=== PATIENT | female | born 1960 | race Caucasian/White ===

== ENCOUNTER 2024-12-16 12:04 | Emergency (ER) | payer BC, SELFPAY ==
[2024-12-16 12:09] VITALS: BP 125/56; PULSE 70; RESP 20; TEMP 37; O2SAT 100; BMI 27.1
--- NOTE | 2024-12-16 12:14 | DI.RAD.S_ITS ---
PROCEDURE: XR ANKLE LT MIN 3V INDICATIONS: glf TECHNIQUE: 3 views of the ankle were acquired. COMPARISON: None. FINDINGS: Bones: Question small avulsion fragment off the lateral dorsal talus, not definite. Ankle mortise is normally aligned. No suspicious bony lesions. Soft tissues: No tibiotalar joint effusion. Achilles tendon appears normal. IMPRESSION: Question small avulsion off of the talus. Dictated by: Nhan House M.D. on 12/16/2024 at 13:18 Approved by: Nhan House M.D. on 12/16/2024 at 13:19
--- NOTE | 2024-12-16 14:38 | ED.LOWEXIN ---
HPI - Extremity Injury (Lower) <Susana De La Cruz PA-C - Last Filed: 12/16/24 15:40> General Chief Complaint: Extremity Injury, Lower Stated Complaint: sprained left ankle Time Seen by Provider: 12/16/24 14:38 Source: patient Mode of arrival: Ambulatory History of Present Illness HPI Narrative: 64-year-old female resident of [facility] presents today with left foot pain and swelling. She was walking when she stepped in a hole describing a hyper plantar flexion type injury possibly inverting her ankle and now having pain with weightbear. She denied feeling or hearing a popping sensation, she did not go to ground. She has no prior orthopedic injuries to this region. She is denying any numbness or tingling or loss of sensation. Ice was applied upon arrival here. She states she is relatively comfortable until she tries to move her foot or ankle. She did take Tylenol 650 mg prior to arrival. All other systems reviewed and are negative. Related Data Allergies Allergy/AdvReac Type Severity Reaction Status Date / Time levofloxacin Allergy Intermediate Verified 12/16/24 12:10 enoxaparin (From Lovenox) Allergy Mild Verified 12/16/24 12:10 Review of Systems <Susana De La Cruz PA-C - Last Filed: 12/16/24 15:40> Review of Systems Narrative: All other systems reviewed and are negative. Patient History <Susana De La Cruz PA-C - Last Filed: 12/16/24 15:40> Social History Smoking Status: Never smoker Smoking Status: Never smoker Exam <Susana De La Cruz PA-C - Last Filed: 12/16/24 15:40> Initial Vital Signs Initial Vital Signs: Vital Signs Temperature 98.6 F 12/16/24 12:09 Pulse Rate 70 12/16/24 12:09 Respiratory Rate 20 12/16/24 12:09 Blood Pressure 125/56 L 12/16/24 12:09 Pulse Oximetry 100 12/16/24 12:09 Oxygen Delivery Method Room Air 12/16/24 12:09 Vital signs reviewed and are normal. Const General: cooperative, healthy appearing, comfortable, well developed, well groomed and No acute distress Other: Smiling, seated, no distress. Resp Effort & Inspection: normal respiratory effort Auscultation: clear to auscultation bilaterally Cardio Rate: regular rate Rhythm: regular rhythm Skin General: no rashes or lesions noted, elasticity normal, turgor normal, ecchymosis (Dorsal lateral left foot.) and No erythema Neuro Motor: muscle tone normal throughout and strength 5/5 throughout Sensory Exam: no sensory deficits noted Extrem Left lower extremity: normal capillary refill, edema and foot Details: normal capillary refill, tenderness, toes with normal ROM, edema, ecchymosis (Dorsal lateral left foot. Focal tenderness noted here. No plantar pain.) and vascular exam Details: dorsalis pedis pulse present, posterior tibial pulse present and normal capillary refill; ROM of toes normal and no unusual warmth Other: Limited ankle ROM due to pain she is able to demonstrate a little bit of inversion eversion plantar flexion causes the most discomfort. No heel discomfort plantar or posterior, no tenderness involving the Achilles. Pain with weightbear. <Anita Hadley MD - Last Filed: 12/17/24 23:47> Initial Vital Signs Initial Vital Signs: Vital Signs Temperature 98.6 F 12/16/24 12:09 Pulse Rate 70 12/16/24 12:09 Respiratory Rate 20 12/16/24 12:09 Blood Pressure 125/56 L 12/16/24 12:09 Pulse Oximetry 100 12/16/24 12:09 Oxygen Delivery Method Room Air 12/16/24 12:09 Procedures <Susana De La Cruz PA-C - Last Filed: 12/16/24 15:40> Orthopedic Splinting/Casting Injury #1: Time of procedure: 15:30 Lower Extremity Injury Location: foot Lower Extremity Immobilizer: boot orthosis (Tall walking boot) Other Orthopedic Equipment: crutches (Patient declined has at home.) Post splinting neuro exam: intact and no change Post splinting vascular exam: no change Placed by: Nursing Additional Comments: Well-tolerated. Course <Susana De La Cruz PA-C - Last Filed: 12/16/24 15:40> Orders Ordered: ED Orders 12/16/24 12:14 XR ankle LT min 3V Stat Vital Signs Vital signs: Vital Signs - 8 hr 12/16/24 12:09 Temperature 98.6 F Pulse Rate 70 Respiratory Rate 20 Blood Pressure 125/56 L Pulse Oximetry 100 Oxygen Delivery Method Room Air <Anita Hadley MD - Last Filed: 12/17/24 23:47> Orders Ordered: ED Orders 12/16/24 12:14 XR ankle LT min 3V Stat Vital Signs Vital signs: Vital Signs - 8 hr 12/16/24 12:09 Temperature 98.6 F Pulse Rate 70 Respiratory Rate 20 Blood Pressure 125/56 L Pulse Oximetry 100 Oxygen Delivery Method Room Air MDM - Extremity Injury (Lower) <Susana De La Cruz PA-C - Last Filed: 12/16/24 15:40> Imaging Data Extremity x-ray #1: My Impression: Deferred to radiologist's interpretation below. Radiologist's Impression: PROCEDURE: XR ANKLE LT MIN 3V INDICATIONS: glf TECHNIQUE: 3 views of the ankle were acquired. COMPARISON: None. FINDINGS: Bones: Question small avulsion fragment off the lateral dorsal talus, not definite. Ankle mortise is normally aligned. No suspicious bony lesions. Soft tissues: No tibiotalar joint effusion. Achilles tendon appears normal. IMPRESSION: Question small avulsion off of the talus. Dictated by: Nhan House M.D. on 12/16/2024 at 13:18 Approved by: Nhan House M.D. on 12/16/2024 at 13:[address] [facility] Narrative Medical decision making narrative: Pleasant athletic appearing 64-year-old female who presented with left dorsal foot swelling, she did step in a hole she described plantar hyperflexion injury. She did not go to ground. Her x-rays revealed a small avulsion fracture of the talus. Films are reviewed with the patient. She likely has an ankle sprain as well due to the swelling and painful ROM and pain with weightbear. She is fitted with a cam boot, she is advised to be nonweightbearing, she will follow up with Orthopedics likely next week when the swelling does come down, she will continue icing, discussed the cam boot and she already has crutches at home. Suggested a shower chair for safety, she can remove it for bathing only but do not try to walk or hop without the splint. Please do not hesitate to seek medical attention if anything changes or worsens. Red flag warning signs reviewed in detail. Anatomy was reviewed in detail. Discharge Plan Departure Patient Disposition: Home Clinical Impression: Avulsion fracture of talus Qualifiers: Encounter type: initial encounter Fracture type: closed Fracture alignment: nondisplaced Laterality: left Qualified Code(s): S92.155A - Nondisplaced avulsion fracture (chip fracture) of left talus, initial encounter for closed fracture Instructions: DI for Talus Fracture Activity Restrictions/Additional Instructions: Please wear the boot at all times, I recommend a shower chair, you may remove it for bathing or showering but do not attempt to hop or ambulate, you should be nonweightbearing until you see orthopedics. Please obtain those crutches at the [facility] as you mentioned, you might consider a rolling scooter or wheelchair as needed. Try to elevate and ice 10-15 minutes at a time several times a day, use a pillow support underneath her knee to avoid hyperextension. Please do not hesitate to seek medical attention if you have any increased pain, swelling or any other new worrisome symptoms. Wear the splint during bedtime, I recommend on tucking your bedding to allow for movement at the base of the bed. Pain reliever of choice, acetaminophen or ibuprofen if tolerated or able to take NSAIDs. Referrals: Akash Newton MD [Physician, Orthopedic Surgery] Referral Note: left talus avulsion fracture, and ankle sprain Stand Alone Forms: Patient Portal/API ED Sign-out <Anita Hadley MD - Last Filed: 12/17/24 23:47> Cosign ED Attending Je Attestation: I was immediately available in the department for consultation throughout this patient's visit. Anita Hadley MD
[2024-12-16 16:00] VITALS: BP 134/78; PULSE 66; RESP 19; O2SAT 98
== END 2024-12-16 16:00 | disposition home or self-care (01) ==
PROVIDERS: Emergency Provider Physician Assistant Medical
DX: S92.155A Nondisplaced avulsion fracture (chip fracture) of left talus, initial encounter for closed fracture (principal); X50.1XXA Overexertion from prolonged static or awkward postures, initial encounter
CPT/HCPCS: 73610; 99281; 99283